=== PATIENT | male | born 1960 | race Caucasian/White ===

== ENCOUNTER 2016-11-27 15:28 | Emergency (ER) | payer OTHER ==
[~2016-11-27] VITALS: Ht 175.3 cm; Wt 81.8 kg
[2016-11-27 15:41] VITALS: BP 144/97; PULSE 121; RESP 16; O2SAT 92
[2016-11-27] MEDS ORDERED: BP med PO (16:06)
[2016-11-27] MEDS ORDERED: DABI75CA3 PO (16:06)
--- NOTE | 2016-11-27 16:10 | ED.REPORT ---
HPI-Abd Pain M 40 and Over Date of Service Nov 27, 2016 ED Provider: Elder Mosqueda DO Pt is 55 y/o male anticoagulated on Pradaxa w/ a hx of PE, DVT, HTN, presenting to the ED c/o left sided abdominal pain onset 4 days ago. He was seen at 3 days ago and had a CT performed which was negative. Pt c/o associated nausea, vomiting, mild pleuritic pain. He denies diarrhea, hematemesis. CT abd/pelvis taken 11/24/16 showed "1. No imagining explanation for the left abdominal pain. 2. Interval increased degree of diffuse fatty infiltration of the liver." Nursing Notes Stated Complaint: ABD PAIN/NAUSEA/VOMITING Chief Complaint: Male Abdominal Pain Nursing Notes Reviewed: Yes Allergies: Coded Allergies: No Known Allergies (Unverified , 11/27/16) Scheduled ([BP med]) Unknown Dose PO DAILY Dabigatran Etexilate Mesylate (Pradaxa) 75 Mg Capsule Unknown Dose PO BID Famotidine (Pepcid) 40 Mg Tablet 40 MG PO BID Scheduled PRN Ondansetron ODT (Zofran ODT) 4 Mg Tablet 4 MG PO Q4H PRN PRN For Nausea Promethazine (Promethazine) 25 Mg Tablet 25 MG PO Q6H PRN PRN For Nausea/ Vomiting General Time Seen by MD: 16:08 Chief Complaint Abdominal pain Hx Obtained From: Patient Arrived By: Walk-in Sudden in Onset?: No Onset Occurred: 4 days ago Symptom Duration: Since onset Progression since Onset: Constant Past Medical History Past Medical History Hypertension PE DVT Past Surgical History Denies Smoking History Never Smoker Social History Alcohol Use: 1-3 per day Drug Use: Denies drug use Ambulatory Status Independent Review of Systems Constitutional: Denies: Chills, Fever Respiratory: Reports: Pleuritic pain GI: Reports: Abdominal pain, Nausea, Vomiting, Denies: Diarrhea, Hematemesis Complete sys rev & neg: except as marked. Physical Exam Initial Vital Signs Vital Signs (First) Date Time Temp Pulse Resp B/P Pulse Ox O2 Delivery O2 Flow Rate FiO2 11/27/16 15:41 36.6 121 16 144/97 92 Room Air Initial VS: Reviewed, Vital signs abnormal Head / Eyes: Atraumatic, Normocephalic, PERRL Neck: Full range of motion Extremities: Vascular intact, Neuro intact, No swelling, No tenderness Skin: Warm, Dry, No cyanosis Neurologic: Alert, Oriented, Nonfocal Psychiatric: Mood/affect normal, Behavior normal, Normal thought content General/Constitutional: Awake, Alert, No acute distress, Cooperative, Not toxic appearing Appearance / Presentation: Positive: Intoxicated Respiratory / Chest: Atraumatic, Breath sounds NL, Breath sounds = bilat, No respiratory distress, No rales, No rhonchi, No wheezing, No retractions, No stridor, No chest tenderness, No chest wall deformity, No crepitus Cardiovascular: Heart rate NL, Regular rhythm, Heart sounds NL, No gallop, No murmurs, No rubs, Cap refill not delayed, Peripheral circulation NL Abdomen: Atraumatic, Soft, No guarding, No rebound Tenderness/Guarding/Rebound: Positive: Tender LUQ... (Mild) Back: Full range of motion, Painless range of motion ENT: Atraumatic, Airway patent Mouth: Positive: Mucous membranes dry Interpretation & Diagnostics Lab Results Interpretation Result Diagram: 11/27/16 1600 11/27/16 1600 Test 11/27/16 16:00 White Blood Count 5.8th/mm3 (3.8-10.1) Red Blood Count 5.79mil/mm3 (4.40-5.80) Hemoglobin 18.0g/dL (13.8-17.2) Hematocrit 53.1% (41.0-50.0) Mean Corpuscular Volume 91.7fL (81-100) Mean Corpuscular Hemoglobin 31.1pg (27.0-35.0) Mean Corpuscular Hemoglobin Concent 33.9% (32.0-37.0) Red Cell Distribution Width 17.1% (12.3-15.4) Platelet Count 59bil/L (150-400) Neutrophils (%) (Auto) 61.2% (40-74) Lymphocytes (%) (Auto) 28.2% (14-46) Monocytes (%) (Auto) 9.1% (4-12) Eosinophils (%) (Auto) 1.2% (0-5) Basophils (%) (Auto) 0.3% (0-3) Sodium Level 141mEq/L (134-144) Potassium Level 4.1mEq/L (3.5-5.2) Chloride Level 97mEq/L (97-108) Carbon Dioxide Level 25mmol/L (18-29) Blood Urea Nitrogen 12mg/dL (6-24) Creatinine 0.73mg/dL (0.76-1.27) Estimat Glomerular Filtration Rate 118mL/min (>59) Glucose Level 135mg/dL (60-99) Calcium Level 8.9mg/dL (8.5-10.1) Magnesium Level 1.5mg/dL (1.6-2.6) Total Bilirubin 0.5mg/dL (0.0-1.2) Aspartate Amino Transf (AST/SGOT) 180U/L (0-50) Alanine Aminotransferase (ALT/SGPT) 66U/L (0-44) Alkaline Phosphatase 132U/L (25-150) Total Protein 7.4g/dL (6.4-8.4) Albumin 3.8g/dL (3.4-5.0) Lipase 44U/L (13-60) Hold Staley Top Tube Received (Received) Alcohol, Quantitative 179mg/dL (0-10) Re-Eval/Medical Decision Med Decision/Clinical Course Overall lab abnormalities associated with alcohol abuse however no acute life threatening pathology can be found. Patient is now tolerating oral intake and will be discharged. He is not made aware of these lab abnormalities and recommended follow-up with his regular doctor. Time of Eval: 17:30 Re-Evaluation/Progress Note: Pt rechecked. Nause and vomiting not improved. Will try another medicine and re-evaluate. Time of Eval: 18:14 Re-Evaluation/Progress Note: Passed PO trial. Informed pt of plan for treatment. Pt understands and agrees with plan for treatment. F/U and RTER warnings given. All questions addressed. Counseled Regarding: Diagnosis, Lab results, Need for follow-up, When/why to return to ED Discharge & Departure Primary Impression: Nausea and vomiting Vomiting type: unspecified Vomiting Intractability: non-intractable Qualified Code: R11.2 - Nausea with vomiting, unspecified Additional Impressions: Alcoholic hepatitis Ascites presence: without ascites Qualified Code: K70.10 - Alcoholic hepatitis without ascites Thrombocytopenia Hypomagnesemia Disposition: Home Vital Signs - All Vital Signs Date Time Temp Pulse Resp B/P Pulse Ox O2 Delivery O2 Flow Rate FiO2 1/3/17 18:36 97 18 140/85 91 Room Air 11/27/16 15:41 36.6 121 16 144/97 92 Room Air )( All Prior VS Reviewed: Yes Condition: Stable Additional Instructions: There is no obvious life threatening cause your symptoms. Platelets are mildly low; your liver function tests are mildly abnormal, and your magnesium was slightly low as well. This may be related to alcohol use and warrants further evaluation by your primary care doctor. It is critically important that you stop drinking alcohol in order to help with the symptoms. Return to ER for persistent vomiting, high fever, or other concerns. Referrals: [facility] Scribe Attestation Portions of this note were transcribed by Salo Avitia. I, Dr. Mosqueda personally performed the history, physical exam and medical decision-making; I reviewed and confirmed the accuracy of the information in the transcribed note. Signed by Quinn Weathers, 11/27/16 - [id number] copies to: [facility] Elder Mosqueda DO Nov 27, 2016 16:09 Kenyon Ellis Nov 27, 2016 16:38 SALO AVITIA Nov 27, 2016 17:16
[2016-11-27 16:15] LABS: BASOPHILS % (AUTO) 0.3 % (0-3); MONOCYTES % (AUTO) 9.1 % (4-12)
[2016-11-27] MEDS ORDERED: 0.9% Sodium Chloride 1,000 ML IV SCH (16:20)
[2016-11-27] MEDS ORDERED: Ondansetron 2 mg/mL 2 mL Inj IVPUSH PRN (16:20)
[2016-11-27 16:22] LABS: EOSINOPHILS % (AUTO) 1.2 % (0-5); Mean Corpuscular Hemoglobin 31.1 pg (27.0-35.0); Mean Corpuscular Volume 91.7 fL (81-100); NEUTROPHILS % (AUTO) 61.2 % (40-74); Platelet Count 59 bil/L (150-400)
[2016-11-27 16:34] LABS: Magnesium 1.5 mg/dL (1.6-2.6)
[2016-11-27] MEDS ORDERED: Alum-Mag Hydrox-Simeth 30 mL Suspension PO ONE (16:35)
[2016-11-27] MEDS ORDERED: Magnesium Sulf 2 Gm/50mL Water 2 GM in IV Premix 1 EACH IV ONE (16:45)
[2016-11-27] MEDS ORDERED: Promethazine 12.5 mg/50 mL-NS 12.5 MG in IV Premix 1 EACH IV ONE (18:05)
[2016-11-27] MEDS ORDERED: FAMO40TA72 PO (18:16)
[2016-11-27] MEDS ORDERED: ONDA4TAB9 PO (18:16)
[2016-11-27] MEDS ORDERED: PROM25TA14 PO (18:16)
[2016-11-27 18:36] VITALS: BP 140/85; PULSE 97; RESP 18; O2SAT 91
== END 2016-11-27 18:36 | disposition home or self-care (01) ==
LOC: SED 15:28
DX: K70.10 Alcoholic hepatitis without ascites (principal); D69.6 Thrombocytopenia, unspecified; E83.42 Hypomagnesemia; I10 Essential (primary) hypertension; F10.20 Alcohol dependence, uncomplicated; Z86.718 Personal history of other venous thrombosis and embolism; Z86.711 Personal history of pulmonary embolism; Z79.01 Long term (current) use of anticoagulants
CPT/HCPCS: 36415; 80053; 83690; 83735; 85025; 96361; 96374; 96375; 99284; G0480; J2270; J2405; J7030

== ENCOUNTER 2017-07-01 15:33 | Emergency (ER) | payer SELFPAY ==
[~2017-07-01] VITALS: Ht 175.3 cm; Wt 79.1 kg
[~2017-07-01 15:33] MED LIST: BP med PO; DABI75CA3 PO; FAMO40TA72 PO; ONDA4TAB9 PO; PROM25TA14 PO
[2017-07-01 15:42] VITALS: BP 155/108; PULSE 90; RESP 16; O2SAT 96
--- NOTE | 2017-07-01 18:05 | ED.REPORT ---
HPI-General Illness Date of Service Jul 01, 2017 ED Provider: Morgan Oneal DO Pt is a 56 year old male with a history of HTN and PE who presents to the ED complaining of vomiting onset yesterday. He c/o associated nausea, weakness, and shaking. He denies diarrhea, anxiety and formication. Pt last drank 2 days ago and admits to drinking excessively. He denies a history of EtOH withdrawal- related vomiting. Per pt, he has vomited three times today. Pt reports that he is interested in rehab for his alcoholism. Nursing Notes Stated Complaint: NAUSEA Chief Complaint: Substance Abuse Nursing Notes Reviewed: Yes Allergies: Coded Allergies: No Known Allergies (Unverified , 11/27/16) Scheduled ([BP med]) Unknown Dose PO DAILY Dabigatran Etexilate Mesylate (Pradaxa) 75 Mg Capsule Unknown Dose PO BID Famotidine (Pepcid) 40 Mg Tablet 40 MG PO BID Scheduled PRN Ondansetron ODT (Zofran ODT) 4 Mg Tablet 4 MG PO Q4H PRN PRN For Nausea Promethazine (Promethazine) 25 Mg Tablet 25 MG PO Q6H PRN PRN For Nausea/ Vomiting General Time Seen by MD: 18:04 Chief Complaint Vomiting Hx Obtained From: Patient Arrived By: Walk-in Sudden in Onset?: No Onset Occurred: Yesterday Symptom Duration: Since onset Severity: Current: No pain currently Severity: Maximum: No pain Recent Healthcare: No recent doctor visit, No recent hospitalization Similar Sx Previous: No Past Medical History Past Medical History PE DVT Reports: Hypertension Past Surgical History Denies Smoking History Never Smoker Social History Alcohol Use: 1-3 per day Drug Use: Denies drug use Ambulatory Status Independent Review of Systems Full Review of Systems Constitutional: Denies: Fever Respiratory: Denies: Dyspnea on exertion, Pleuritic pain Cardiovascular: Denies: Chest pain, Dyspnea on exertion, Edema, Orthopnea GI: Reports: Nausea, Vomiting, Denies: Abdominal pain Male: Denies Dysuria, Denies Flank pain Musculoskeletal: Denies: Back pain Hematologic: Denies Adenopathy Skin: Denies Bruising Allergy / Immune: Denies: Anaphylaxis Neurologic: Reports: Shaking, Denies: Abnormal movement, Seizure, Syncope Psychiatric: Denies: Anxiety Complete sys rev & neg: except as marked. Physical Exam Vital Signs Vital Signs Date Time Temp Pulse Resp B/P Pulse Ox O2 Delivery O2 Flow Rate FiO2 07/02/17 00:15 80 22 183/96 95 Room Air 07/01/17 22:03 78 17 174/97 95 Room Air 07/01/17 19:14 93 18 181/105 94 Room Air 07/01/17 18:21 84 12 187/104 97 Room Air 07/01/17 15:42 37.0 90 16 155/108 96 Room Air Initial VS: Reviewed Head / Eyes: Atraumatic, Normocephalic Neck: Supple, Full range of motion Respiratory: Breath sounds normal, Clear to auscultation, No respiratory distress Abdomen / GI: Soft, Non-tender Extremities: Vascular intact, Neuro intact Skin: Warm, Dry, No cyanosis Neurologic: Alert, Oriented, Nonfocal Psychiatric: Mood/affect normal, Behavior normal General/Constitutional: Awake, Alert Distress / Hydration: Positive: Distress moderate CARDIOVASCULAR: Irregular at times and regular at other times. PC on monitor. Skin: Warm, Dry, Intact Well perfused. No diaphoretic. Psychiatric: No hallucinations [place] affect. Forced speech. Interpretation & Diagnostics Lab Results Interpretation Result Diagram: 07/01/17180907/01/17 1810 Test 07/01/17 18:10 07/01/17 21:20 White Blood Count 4.8th/mm3 (3.8-10.1) Red Blood Count 5.15mil/mm3 (4.40-5.80) Hemoglobin 17.3g/dL (13.8-17.2) Hematocrit 50.5% (41.0-50.0) Mean Corpuscular Volume 98.1fL (81-100) Mean Corpuscular Hemoglobin 33.6pg (27.0-35.0) Mean Corpuscular Hemoglobin Concent 34.3% (32.0-37.0) Red Cell Distribution Width 13.6% (12.3-15.4) Platelet Count 104bil/L (150-400) Neutrophils (%) (Auto) 50.7% (40-74) Lymphocytes (%) (Auto) 29.8% (14-46) Monocytes (%) (Auto) 17.4% (4-12) Eosinophils (%) (Auto) 1.3% (0-5) Basophils (%) (Auto) 0.6% (0-3) Sodium Level 135mEq/L (134-144) Potassium Level 4.2mEq/L (3.5-5.2) Chloride Level 92mEq/L (97-108) Carbon Dioxide Level 26mmol/L (18-29) Blood Urea Nitrogen 10mg/dL (6-24) Creatinine 0.57mg/dL (0.76-1.27) Estimat Glomerular Filtration Rate 156mL/min (>59) Glucose Level 103mg/dL (60-99) Calcium Level 9.6mg/dL (8.5-10.1) Magnesium Level 1.3mg/dL (1.6-2.6) Total Bilirubin 0.6mg/dL (0.0-1.2) Aspartate Amino Transf (AST/SGOT) 66U/L (0-50) Alanine Aminotransferase (ALT/SGPT) 44U/L (0-44) Alkaline Phosphatase 147U/L (25-150) Total Protein 7.2g/dL (6.4-8.4) Albumin 4.0g/dL (3.4-5.0) Hold Staley Top Tube Received (Received) Alcohols < 10mg/dL (0-10) Hold Urine Received (Received) Re-Eval/Medical Decision Med Decision/Clinical Course Mr. Valiente tells and gave a different account of how much he drinks. She tells me he drinks every day and when he stops drinking he starts to have nausea, vomiting and tremor. He then agreed that he is drinking every day. We treated him with a seawall protocol. Banana bag was infused. And he felt great. I recommended a troponin after 4 hours of observation. He wanted the IV out and wanted nothing that is therefore that test was not completed. He was not having any chest pain and he showed no signs or symptoms consistent with an [place] so I felt it reasonable that he refused that test. I think this and the most important thing that he can do is stop drinking alcohol. He is interested in home detox. He does not wish to go sobering services. He will not be alone tonight. He is clinically sober. He is comfortable with the lorazepam taper. He will take it is directed. Recommend he follows up with Alcoholics Anonymous and his primary care physician. He was discharged in stable condition. Source of Hx: Old records Time of Eval: 23:45 Re-Evaluation/Progress Note: Pt rechecked. Informed pt of plan for discharge. Pt understands and agrees with plan for discharge. F/U instructions and RTER warnings given. All questions addressed. Counseled Regarding: Diagnosis, Lab results, Need for follow-up, When/why to return to ED Discharge & Departure Primary Impression: Alcohol withdrawal Complication of substance-induced condition: uncomplicated Qualified Code: F10.230 - Alcohol dependence with withdrawal, uncomplicated Disposition: Home Discharge Condition All VS Reviewed: Yes Condition: Stable Patient Instructions: Alcohol Withdrawal (ED) Additional Instructions: Do not drive tonight. Complete the Ativan taper as prescribed. Do not consume alcohol while taking the Ativan as it can become life- threatening. Call Alcohol Anonymous tomorrow. Call your primary care provider tomorrow for a recheck. Return to the Emergency Department for any new or worsening symptoms. Referrals: SAAD FOSTER DO (PCP) Alcoholics Anonymous (AA) Quinn Attestation Portions of this note were transcribed by Renee Morales. I, Dr. Oneal personally performed the history, physical exam and medical decision-making; I reviewed and confirmed the accuracy of the information in the transcribed note. Signed by : Quinn Stanley, 07/01/17. copies to: SAAD FOSTER DO ; Alcoholics Anonymous (AA) Morgan Oneal DO Jul 01, 2017 18:04 Renee Sampson Jul 01, 2017 18:58
[2017-07-01 18:21] VITALS: BP 187/104; PULSE 84; RESP 12; O2SAT 97
[2017-07-01 18:25] LABS: BASOPHILS % (AUTO) 0.6 % (0-3); EOSINOPHILS % (AUTO) 1.3 % (0-5); MONOCYTES % (AUTO) 17.4 % (4-12); Mean Corpuscular Hemoglobin 33.6 pg (27.0-35.0); Mean Corpuscular Volume 98.1 fL (81-100); NEUTROPHILS % (AUTO) 50.7 % (40-74); Platelet Count 104 bil/L (150-400)
[2017-07-01] MEDS ORDERED: Thiamine Inj 100 MG, Folic Acid Inj 1 MG, Magnesium Sulfate 50% Inj 2 GM, Multivitamins... IV ONE ×5 (18:55)
[2017-07-01] MEDS ORDERED: Ondansetron 2 mg/mL 2 mL Inj IVPUSH PRN (19:00)
[2017-07-01 19:11] LABS: Magnesium 1.3 mg/dL (1.6-2.6)
[2017-07-01 19:14] VITALS: BP 181/105; PULSE 93; RESP 18; O2SAT 94
[2017-07-01 22:03] VITALS: BP 174/97; PULSE 78; RESP 17; O2SAT 95
[2017-07-01] MEDS ORDERED: _LORazepam 2 MG Tablet PO SCH (23:15)
[2017-07-02 00:15] VITALS: BP 183/96; PULSE 80; RESP 22; O2SAT 95
== END 2017-07-02 00:17 | disposition home or self-care (01) ==
LOC: SED 15:33
DX: F10.230 Alcohol dependence with withdrawal, uncomplicated (principal); R11.2 Nausea with vomiting, unspecified; I10 Essential (primary) hypertension; Z86.718 Personal history of other venous thrombosis and embolism
CPT/HCPCS: 36415; 80053; 82746; 83735; 85025; 96365; 96366; 96375; 99285; G0480; J3360; J3475; J7030